=== PATIENT | male | born 1985 | race Caucasian/White ===

== ENCOUNTER 2021-12-09 15:10 | Emergency (ER) | payer MEDICAID ==
[~2021-12-09] VITALS: Ht 182.9 cm; Wt 95.5 kg
[2021-12-09] MEDS ORDERED: NALO4SPR BOTHNARES (16:49)
[2021-12-09 17:01] VITALS: BP 117/76
== END 2021-12-09 17:02 | disposition home or self-care (01) ==
LOC: ER 15:11
DX: T40.411A Poisoning by fentanyl or fentanyl analogs, accidental (unintentional), initial encounter (principal); R41.82 Altered mental status, unspecified; Y92.89 Other specified places as the place of occurrence of the external cause; Z59.00 Homelessness unspecified; Z56.0 Unemployment, unspecified; Z79.899 Other long term (current) drug therapy
CPT/HCPCS: 99283